=== PATIENT | male | born 1940 | race Caucasian/White ===

== ENCOUNTER → 2017-08-05 | Outpatient (CLI) | payer MEDICARE | END | disposition home or self-care (01) | LOC: CFH 10:04 | PROVIDERS: ATTEND Internal Medicine Cardiovascular Disease | DX: I08.3 Combined rheumatic disorders of mitral, aortic and tricuspid valves (principal); I10 Essential (primary) hypertension | CPT/HCPCS: 93306 ==

== ENCOUNTER 2019-10-30 10:41 | Observation (INO) | payer MEDICARE ==
[~2019-10-30] VITALS: Ht 175.3 cm; Wt 70.0 kg
[2019-10-30] MEDS ORDERED: PANTOPRAZOLE 40 MG IV ONE (11:16)
--- NOTE | 2019-10-30 11:25 | NUR ---
PT BP CONTINUES TO BE HYPOTENSIVE, MD UPDATED, ORDERS RECEIVED FOR NS BOLUS. WILL CONTINUE TO MONITOR
--- NOTE | 2019-10-30 11:29 | NUR ---
pt to ed from home, sent by Dr. Yañez for GI bleed. admitted at [facility], d/c yest. pt reports black stool, SOB, dizziness. denies abd pain. on warfarin. pale, skin cool and dry. hypotn see vitals. Dr. Gautam at bedside for eval. 500 cc fluid bolus infusing, labs pending, cxr at bedside. piv est. A&Ox4 GCS 15. denies cp. req 4 LNC, baseline 2 LNC at home. call [facility] in reach. ctm.
[2019-10-30] MEDS ORDERED: SODIUM CHLORIDE 0.9% 1,000ML IVBOLUS ONE ×2 (11:30→12:30)
[2019-10-30] MEDS ORDERED: PANTOPRAZOLE 80 MG in SODIUM CHLORIDE 0.9% 100 ML IV SCH (11:30)
[2019-10-30] MEDS ORDERED: SODIUM CHLORIDE FLUSH 10ML SYR IVF ONE (11:30)
[2019-10-30] MEDS ORDERED: PANTOPRAZOLE 40 MG IV IVPush ONE (11:30)
[2019-10-30 11:41] LABS: BASOPHILS # (AUTO) 0.08 x10^3/uL (0-0.1); BASOPHILS % (AUTO) 1 % (0-1); EOSINOPHILS # (AUTO) 0.23 x10^3/uL (0-0.4); EOSINOPHILS % (AUTO) 1 % (1-7); LYMPHOCYTES # (AUTO) 1.93 x10^3/uL (1-3.4); LYMPHOCYTES % (AUTO) 11 % (22-44); MD NO; MEAN CORPUSCULAR HGB CONC 32.8 g/dL (33.2-36.2); MEAN CORPUSCULAR VOLUME 91.7 fL (81-97); MEAN PLATELET VOLUME 9.6 fL (7.4-10.4); MONOCYTES # (AUTO) 1.28 x10^3/uL (0.2-0.8); MONOCYTES % (AUTO) 7 % (2-9); NEUTROPHILS # (AUTO) 13.79 x10^3/uL (1.8-6.8); NEUTROPHILS % (AUTO) 80 % (42-75); PLATELET COUNT 351 x10^3/uL (130-400); RED BLOOD COUNT 5.59 x10^6/uL (4.38-5.82); RED CELL DISTRIBUTION WIDTH 14.2 % (9.4-14.8)
[2019-10-30 11:50] LABS: ALBUMIN 3.3 g/dL (3.4-5.0); ANION GAP 9 mmol/L (5-15); CALCIUM 9.6 mg/dL (8.5-10.1); CHLORIDE 93 mmol/L (98-107)
[2019-10-30 11:55] LABS: ALANINE AMINOTRANSFERASE 86 U/L (12-78); ALKALINE PHOSPHATASE 99 U/L (45-117); BILIRUBIN,TOTAL 0.9 mg/dL (0.2-1.0); CREATININE 2.05 mg/dL (0.7-1.3); TOTAL PROTEIN 7.9 g/dL (6.4-8.2); TROPONIN I < 0.015 ng/mL (0.000-0.045)
[2019-10-30 12:02] LABS: INTERNATIONAL NORMALIZED RATIO 3.12 (0.93-1.1); PROTHROMBIN TIME 31.4 Seconds (9.6-11.5)
--- NOTE | 2019-10-30 12:08 | NUR ---
ALL RESULTS BACK AT THIS TIME, CHART UP FOR RECHECK
--- NOTE | 2019-10-30 12:09 | NUR ---
PT BP CONTINUES TO BE LOW 90/46. NADN FROM PT, STS INTERMITTENT DIZZINESS BUT CURRENTLY NO COMPLAINTS. AWAITING RECHECK AT THIS TIME.
--- NOTE | 2019-10-30 12:25 | NUR ---
DISCUSSION WITH MD REGARDING BP AND ELEVATED WBC. ADDITIONAL ORDERS RECEIVED AT THIS TIME FOR FLUIDS, CT, UA AND LACTIC. PLAN IS FOR PT TO BE ADMITTED TO [facility]. FAMILY AT BEDSIDE. CALL LIGHT WITHIN REACH
--- NOTE | 2019-10-30 12:48 | NUR ---
pt to ct. bp 90s systolic, asymptomatic.
--- NOTE | 2019-10-30 12:51 | NUR ---
PT ATTEMPTED UA BUT UNABLE TO GIVE SAMPLE AT THIS TIME, FLUIDS STILL RUNNING. WILL CONTINUE TO MONITOR AND CHECK BACK ABOUT UA.
--- NOTE | 2019-10-30 13:00 | NUR ---
pt back from ct. vss. call [facility] in reach, sts dizzines and sob feels better.
--- NOTE | 2019-10-30 13:21 | NUR ---
straight cathed, ua sent.
--- NOTE | 2019-10-30 13:24 | NUR ---
cxr wnl. ct: old compression fx.
[2019-10-30] MEDS ORDERED: SODIUM CHLORIDE FLUSH 10ML SYR IVF PRN (14:00)
[2019-10-30 14:17] LABS: CULTURE INDICATED? YES; MICROSCOPIC INDICATED
[2019-10-30] MEDS ORDERED: FENO160T PO (14:17)
[2019-10-30] MEDS ORDERED: FURO20TA3 PO (14:17)
[2019-10-30] MEDS ORDERED: WARF5TAB PO (14:17)
[2019-10-30] MEDS ORDERED: LISI40TA PO (14:32)
[2019-10-30] MEDS ORDERED: SIMV20TA PO (14:32)
[2019-10-30] MEDS ORDERED: METO-99 PO (14:32)
[2019-10-30] MEDS ORDERED: INSU100C SQ-INSULIN (14:32)
[2019-10-30] MEDS ORDERED: SPIR25TA5 PO (14:32)
[2019-10-30] MEDS ORDERED: INSU100V8 SQ (14:32)
[2019-10-30] MEDS ORDERED: SITA100T PO (14:32)
[2019-10-30] MEDS ORDERED: GLIM4TAB4 PO (14:32)
[2019-10-30] MEDS ORDERED: WARFARIN 5 MG TABLET PO-COUM SCH (15:00)
--- NOTE | 2019-10-30 15:41 | NUR ---
.Spoke with Dr. Triplett , there are 2 orders for admit one for med/tele one for cardiac tele. Dr. Triplett stated pt can go to Med/tele and to cancel Cardiac tele admit order
[2019-10-30] MEDS ORDERED: SODIUM CHLORIDE 0.9% 1,000 ML IV SCH (16:00)
[2019-10-30] MEDS: INSULIN LISPRO 100 UNITS/ML, PEN SQ-INSULIN SCH ×2 (16:00→21:31)
--- NOTE | 2019-10-30 16:14 | NUR ---
pt noted to by hypotensive 70s/50s, [facility] notified, maintenance fluids at 100 cc/hr, bp now 102/66, pt sts he was trying to sleep. denies dizziness. awaiting transport.
[2019-10-30 16:58] LABS: CHLORIDE,URINE RANDOM < 10 mmol/L
[2019-10-30 17:02] LABS: POTASSIUM,URINE RANDOM 46 mmol/L; SODIUM,URINE RANDOM 26 mmol/L
--- NOTE | 2019-10-30 17:02 | NUR ---
bgl 54. page out to [facility]. npo order cancelled by Dr. Triplett in computer. pt given 1 juice.
--- NOTE | 2019-10-30 17:04 | NUR ---
Spoke w/ [facility] Dr. Escalona, pt no longer NPO, will feed pt and rechck bgl.
--- NOTE | 2019-10-30 17:15 | NUR ---
pt drank 2.5 OJ, pb and crackers x1. Asymptomatic, A&Ox4 GCS 15, vss.
--- NOTE | 2019-10-30 17:32 | NUR ---
PT TRANSFERRED PAGE OUT TO [facility] RE: BGL NOT RESPONDING TO JUICE.
--- NOTE | 2019-10-30 17:33 | NUR ---
Pt having low bg still on transfer. [facility] has been paged and made aware of this. Pt has been give 3 ojs and peanu butter ith crackers and no increase. D5.1/2ns requested. This poc was discussed with Nimo grant rn and Rg primary rn. Pt is non symtpomatic and resting. Verbalized understnading to not leave room.
--- NOTE | 2019-10-30 17:46 | NUR ---
CALL PLACED TO JAZMIN RN TO UPDATE FREIGHT AGENT BACK FROM [facility] AND REQUEST FOR DEXTROSE
[2019-10-30 17:47] LABS: RAPID INFLUENZA A Negative (Negative); RAPID INFLUENZA B Negative (Negative)
[2019-10-30] MEDS ORDERED: WARFARIN 5 MG TABLET PO-COUM ONE (18:00)
[2019-10-30] MEDS ORDERED: D5%-0.45% NACL 500 ML IV SCH (18:00)
[2019-10-30 19:52] VITALS: BP 112/74
[2019-10-30] MEDS: SIMVASTATIN 20 MG TABLET PO SCH (20:24)
[2019-10-30] MEDS: SODIUM CHLORIDE 0.9% 1,000 ML IV SCH (20:25)
[2019-10-30 20:36] LABS: BASOPHILS # (AUTO) 0.04 x10^3/uL (0-0.1); BASOPHILS % (AUTO) 0 % (0-1); EOSINOPHILS # (AUTO) 0.24 x10^3/uL (0-0.4); EOSINOPHILS % (AUTO) 2 % (1-7); LYMPHOCYTES # (AUTO) 1.76 x10^3/uL (1-3.4); LYMPHOCYTES % (AUTO) 14 % (22-44); MD NO; MEAN CORPUSCULAR HEMOGLOBIN 30.4 pg (27.5-34.5); MEAN CORPUSCULAR VOLUME 92.2 fL (81-97); MEAN PLATELET VOLUME 9.3 fL (7.4-10.4); MONOCYTES # (AUTO) 1.18 x10^3/uL (0.2-0.8); MONOCYTES % (AUTO) 10 % (2-9); NEUTROPHILS # (AUTO) 9.13 x10^3/uL (1.8-6.8); NEUTROPHILS % (AUTO) 74 % (42-75); PLATELET COUNT 296 x10^3/uL (130-400); RED BLOOD COUNT 4.69 x10^6/uL (4.38-5.82); RED CELL DISTRIBUTION WIDTH 14.7 % (9.4-14.8)
[2019-10-30] MEDS ORDERED: LISINOPRIL 40 MG TABLET PO SCH (21:00)
[2019-10-30] MEDS ORDERED: INSULIN GLARGINE 100 UNITS/ML, PEN SQ-INSULIN SCH (21:00)
[2019-10-30] MEDS: PANTOPRAZOLE 80 MG in SODIUM CHLORIDE 0.9% 100 ML IV SCH (21:31)
[2019-10-30 22:43] VITALS: BP 106/56
[2019-10-31 02:07] VITALS: BP 118/76
[2019-10-31] MEDS ORDERED: DEXTROSE 4 GM TAB.CHEW PO PRN (06:30)
[2019-10-31] MEDS ORDERED: DEXTROSE 50%, 50ML SYRINGE IVPush PRN (06:30)
[2019-10-31] MEDS ORDERED: GLUCAGON 1 MG IM PRN (06:30)
[2019-10-31 06:44] LABS: BASOPHILS # (AUTO) 0.03 x10^3/uL (0-0.1); BASOPHILS % (AUTO) 0 % (0-1); EOSINOPHILS # (AUTO) 0.32 x10^3/uL (0-0.4); EOSINOPHILS % (AUTO) 3 % (1-7); LYMPHOCYTES # (AUTO) 1.73 x10^3/uL (1-3.4); LYMPHOCYTES % (AUTO) 14 % (22-44); MD NO; MEAN CORPUSCULAR HEMOGLOBIN 29.5 pg (27.5-34.5); MEAN CORPUSCULAR HGB CONC 32.7 g/dL (33.2-36.2); MEAN CORPUSCULAR VOLUME 90.4 fL (81-97); MEAN PLATELET VOLUME 8.7 fL (7.4-10.4); MONOCYTES # (AUTO) 1.31 x10^3/uL (0.2-0.8); MONOCYTES % (AUTO) 10 % (2-9); NEUTROPHILS # (AUTO) 9.24 x10^3/uL (1.8-6.8); NEUTROPHILS % (AUTO) 73 % (42-75); PLATELET COUNT 277 x10^3/uL (130-400); RED BLOOD COUNT 4.45 x10^6/uL (4.38-5.82); RED CELL DISTRIBUTION WIDTH 14.3 % (9.4-14.8)
[2019-10-31 06:49] LABS: INTERNATIONAL NORMALIZED RATIO 4.52 (0.93-1.1); PROTHROMBIN TIME 44.8 Seconds (9.6-11.5)
[2019-10-31 06:51] LABS: CHLORIDE 109 mmol/L (98-107)
[2019-10-31 06:59] LABS: ALANINE AMINOTRANSFERASE 52 U/L (12-78); ALBUMIN 2.2 g/dL (3.4-5.0); ALKALINE PHOSPHATASE 72 U/L (45-117); ANION GAP 7 mmol/L (5-15); BILIRUBIN,TOTAL 0.5 mg/dL (0.2-1.0); CALCIUM 6.4 mg/dL (8.5-10.1); CREATININE 1.17 mg/dL (0.7-1.3); TOTAL PROTEIN 5.3 g/dL (6.4-8.2)
[2019-10-31] MEDS: SODIUM CHLORIDE 0.9% 1,000 ML IV SCH (07:14)
[2019-10-31] MEDS: PANTOPRAZOLE 80 MG in SODIUM CHLORIDE 0.9% 100 ML IV SCH ×2 (07:14→18:21)
[2019-10-31 08:00] VITALS: BP 104/70
[2019-10-31] MEDS ORDERED: TEMPLATE NON-FORMULARY MED. (Sitagliptin Phosphate** (Januvia**) 100 MG) PO SCH (09:00)
[2019-10-31] MEDS ORDERED: SPIRONOLACTONE 25 MG TABLET PO SCH (09:00)
[2019-10-31] MEDS ORDERED: GLIMEPIRIDE 4 MG TABLET PO SCH (09:00)
[2019-10-31] MEDS: SENNA/DOCUSATE TABLET PO SCH (09:18)
[2019-10-31] MEDS: SODIUM CHLORIDE FLUSH 10ML SYR IVF SCH ×2 (10:14→20:51)
[2019-10-31] MEDS: FENOFIBRATE 145 MG TABLET PO SCH (10:14)
[2019-10-31] MEDS: METOPROLOL TARTRATE 100 MG TABLET PO SCH (10:14)
[2019-10-31] MEDS: INSULIN LISPRO 100 UNITS/ML, PEN SQ-INSULIN SCH ×3 (12:10→20:51)
[2019-10-31 13:06] VITALS: BP 119/71
[2019-10-31] MEDS ORDERED: SODIUM CHLORIDE 0.9% 1,000 ML IV SCH ×2 (16:00)
[2019-10-31 20:44] VITALS: BP 110/66
[2019-10-31] MEDS: SIMVASTATIN 20 MG TABLET PO SCH (20:50)
[2019-11-01 02:00] VITALS: BP 115/77
[2019-11-01] MEDS: PANTOPRAZOLE 80 MG in SODIUM CHLORIDE 0.9% 100 ML IV SCH (03:43)
[2019-11-01] MEDS ORDERED: PANTOPROZOLE 40MG TABLET PO SCH (06:00)
[2019-11-01] MEDS ORDERED: POTASSIUM CHLORIDE 20 MEQ TAB.ER.PRT PO ONE (06:30)
[2019-11-01] MEDS: INSULIN LISPRO 100 UNITS/ML, PEN SQ-INSULIN SCH ×2 (07:00→11:23)
[2019-11-01 07:17] LABS: BASOPHILS # (AUTO) 0.05 x10^3/uL (0-0.1); BASOPHILS % (AUTO) 0 % (0-1); EOSINOPHILS % (AUTO) 3 % (1-7); LYMPHOCYTES % (AUTO) 13 % (22-44); MD NO; MEAN CORPUSCULAR HEMOGLOBIN 30.3 pg (27.5-34.5); MEAN CORPUSCULAR VOLUME 91.9 fL (81-97); MEAN PLATELET VOLUME 9.2 fL (7.4-10.4); MONOCYTES # (AUTO) 1.18 x10^3/uL (0.2-0.8); MONOCYTES % (AUTO) 10 % (2-9); NEUTROPHILS # (AUTO) 8.82 x10^3/uL (1.8-6.8); NEUTROPHILS % (AUTO) 74 % (42-75); PLATELET COUNT 248 x10^3/uL (130-400); RED CELL DISTRIBUTION WIDTH 14.8 % (9.4-14.8)
[2019-11-01 07:21] LABS: ALBUMIN 2.8 g/dL (3.4-5.0); ANION GAP 5 mmol/L (5-15); CALCIUM 8.6 mg/dL (8.5-10.1); CHLORIDE 105 mmol/L (98-107)
[2019-11-01 07:24] LABS: ALANINE AMINOTRANSFERASE 53 U/L (12-78); ALKALINE PHOSPHATASE 73 U/L (45-117); BILIRUBIN,TOTAL 0.8 mg/dL (0.2-1.0); CREATININE 1.33 mg/dL (0.7-1.3); TOTAL PROTEIN 6.5 g/dL (6.4-8.2)
[2019-11-01 07:47] LABS: INTERNATIONAL NORMALIZED RATIO 3.02 (0.93-1.1); PROTHROMBIN TIME 30.4 Seconds (9.6-11.5)
[2019-11-01 08:32] VITALS: BP 107/61
[2019-11-01] MEDS: METOPROLOL TARTRATE 100 MG TABLET PO SCH (08:33)
[2019-11-01] MEDS: FENOFIBRATE 145 MG TABLET PO SCH (08:33)
[2019-11-01] MEDS: SENNA/DOCUSATE TABLET PO SCH (08:34)
[2019-11-01] MEDS: SODIUM CHLORIDE FLUSH 10ML SYR IVF SCH (08:34)
[2019-11-01 13:20] VITALS: BP 107/62
[2019-11-01] MEDS ORDERED: PANT40TA5 PO (14:08)
[2019-11-01] MEDS ORDERED: WARFARIN 2.5 MG TABLET PO-COUM ONE (18:00)
== END 2019-11-01 16:11 | disposition home or self-care (01) ==
LOC: ED 13:21 → EDIP 13:50 → UNDOADMOB 13:50 → INTOOBSV 13:50 → EDIP 17:20 → 4WST 17:20 → OBSVTOIN 10-31 08:31 → INTOOBSV 10-31 08:31 → 4WST 11-01 14:25 → DCLOUNGE 11-01 16:11
PROVIDERS: ADMIT Family Medicine; ATTEND Family Medicine
DX: K92.1 Melena (principal); I95.9 Hypotension, unspecified; N17.0 Acute kidney failure with tubular necrosis; I50.42 Chronic combined systolic (congestive) and diastolic (congestive) heart failure; R74.0 Nonspecific elevation of levels of transaminase and lactic acid dehydrogenase [LDH]; I13.0 Hypertensive heart and chronic kidney disease with heart failure and stage 1 through stage 4 chronic kidney disease, or unspecified chronic kidney disease; I48.91 Unspecified atrial fibrillation; D72.829 Elevated white blood cell count, unspecified; N18.9 Chronic kidney disease, unspecified; E11.22 Type 2 diabetes mellitus with diabetic chronic kidney disease; E11.649 Type 2 diabetes mellitus with hypoglycemia without coma; Z79.899 Other long term (current) drug therapy
CPT/HCPCS: 36415; 71045; 74176; 80053; 81001; 82436; 82962; 83036; 83605; 83880; 84133; 84145; 84300; 84484; 85025; 85610; 85730; 86850; 86900; 87086; 87400; 93005; 96365; 96366; 96372; 96375; 99284; C9113; G0378; J1815; J7030; 99285